=== PATIENT | male | born 1990 | race Caucasian/White ===

== ENCOUNTER → 2020-02-10 | Outpatient (CLI) | payer BC ==
[2020-02-10 15:04] LABS: APPEARANCE, URINE CLEAR (CLEAR); BACTERIA, URINE AUTO NEGATIVE (NEGATIVE); BILIRUBIN, URINE AUTO NEGATIVE (NEGATIVE); BLOOD, URINE BLOOD NEGATIVE (NEGATIVE); COLOR, URINE YELLOW (YELLOW); GLUCOSE, URINE (UA) AUTO NEGATIVE (NEGATIVE); KETONE, URINE AUTO NEGATIVE (NEGATIVE); LEUKOCYTE ESTERASE, URINE AUTO NEGATIVE (NEGATIVE); NITRITE, URINE AUTO NEGATIVE (NEGATIVE); PROTEIN, URINE AUTO 2+ mg/dL (NEGATIVE); RBC, URINE AUTO 1 /HPF (0-3); SPECIFIC GRAVITY URINE AUTO 1.015 (1.002-1.035); SQUAMOUS EPITHELIAL CELL UR AU 0 /HPF (0-6); UROBILINOGEN, URINE AUTO 0.2 mg/dL (0.0-2.0); WBC, URINE AUTO 0 /HPF (0-3)
[2020-02-10 15:45] LABS: BLOOD UREA NITROGEN 17 MG/DL (7-18); CALCIUM LEVEL 9.5 MG/DL (8.5-10.1); CARBON DIOXIDE LEVEL 29 MEQ/L (21-32); CHLORIDE LEVEL 104 MEQ/L (98-107); CREATININE FOR GFR 1.31 MG/DL (0.70-1.30); FREE T4 1.14 NG/DL (0.76-1.46); GLOMERULAR FILTRATION RATE > 60.0 (>60); GLUCOSE, FASTING 70 MG/DL (70-100); POTASSIUM SERUM 4.4 MEQ/L (3.5-5.1); SODIUM LEVEL 137 MEQ/L (136-145); TESTOSTERONE 869 NG/DL (241-827)
== END ==
LOC: M WUC 10:22
PROVIDERS: ATTEND Physician Assistant Medical
DX: F52.21 Male erectile disorder (principal)

== ENCOUNTER 2024-03-11 11:52 | Emergency (ER) | payer BC ==
[~2024-03-11] VITALS: Ht 182.9 cm; Wt 71.0 kg
[2024-03-11] MEDS ORDERED: MEDR4PAK PO (15:25)
[2024-03-11] MEDS ORDERED: KETO10TAB PO (15:25)
[2024-03-11] MEDS ORDERED: METH-1165 PO (15:25)
[2024-03-11] MEDS: ACETAMINOPHEN TAB 650MG DOSE (2X325MG) PO ONE (15:26)
[2024-03-11] MEDS: KETOROLAC 30 MG/ML 1ML VIAL IM ONE (15:27)
[2024-03-11 15:40] VITALS: BP 160/90; O2SAT 99
[2024-03-11 15:42] VITALS: TEMP 97.1
== END 2024-03-11 15:42 | disposition home or self-care (01) ==
LOC: M ED 11:52
DX: S39.012A Strain of muscle, fascia and tendon of lower back, initial encounter (principal); M54.30 Sciatica, unspecified side; X50.3XXA Overexertion from repetitive movements, initial encounter; Y92.9 Unspecified place or not applicable; Y93.H1 Activity, digging, shoveling and raking; Y99.0 Civilian activity done for income or pay
CPT/HCPCS: 96372; 99283; J1885